=== PATIENT | male | born 1950 | race Asian ===

== ENCOUNTER → 2018-01-24 | Outpatient (CLI) | payer MEDICARE, MEDICAID | END | disposition home or self-care (01) | LOC: ROC 08:12 | PROVIDERS: ATTEND Radiology Radiation Oncology | DX: C20 Malignant neoplasm of rectum (principal); C78.02 Secondary malignant neoplasm of left lung; C64.1 Malignant neoplasm of right kidney, except renal pelvis | CPT/HCPCS: G0463 ==

== ENCOUNTER → 2018-05-27 | Outpatient (CLI) | payer MEDICARE, MEDICAID ==
[~2018-05-27] MED LIST: OMNIPAQUE 350 MG/ML, 100ML BOTTLE ONE
== END | disposition home or self-care (01) ==
LOC: CFH 10:24
PROVIDERS: ATTEND Internal Medicine Hematology & Oncology
DX: N28.1 Cyst of kidney, acquired (principal); N32.3 Diverticulum of bladder; K40.90 Unilateral inguinal hernia, without obstruction or gangrene, not specified as recurrent; R91.8 Other nonspecific abnormal finding of lung field; K80.20 Calculus of gallbladder without cholecystitis without obstruction; C78.02 Secondary malignant neoplasm of left lung; D75.1 Secondary polycythemia; C64.1 Malignant neoplasm of right kidney, except renal pelvis; C20 Malignant neoplasm of rectum; Z90.5 Acquired absence of kidney
CPT/HCPCS: 71260; 74177; Q9967

== ENCOUNTER → 2018-09-02 | Outpatient (CLI) | payer MEDICARE, MEDICAID | END | disposition home or self-care (01) | LOC: CFH 12:41 | PROVIDERS: ATTEND Internal Medicine Hematology & Oncology | DX: C78.02 Secondary malignant neoplasm of left lung (principal); C64.1 Malignant neoplasm of right kidney, except renal pelvis; C20 Malignant neoplasm of rectum; R91.8 Other nonspecific abnormal finding of lung field; E04.0 Nontoxic diffuse goiter | CPT/HCPCS: 71260; 74177; 82565; Q9967 ==

== ENCOUNTER → 2019-07-15 | Outpatient (CLI) | payer MEDICARE, MEDICAID | END | disposition home or self-care (01) | LOC: STAR 11:50 | PROVIDERS: ATTEND Nurse Practitioner Family | DX: Z01.818 Encounter for other preprocedural examination (principal); C64.1 Malignant neoplasm of right kidney, except renal pelvis; C78.02 Secondary malignant neoplasm of left lung; D75.1 Secondary polycythemia; C78.01 Secondary malignant neoplasm of right lung; C79.51 Secondary malignant neoplasm of bone; E04.2 Nontoxic multinodular goiter; C20 Malignant neoplasm of rectum | CPT/HCPCS: 93005 ==

== ENCOUNTER → 2019-10-27 | Outpatient (CLI) | payer MEDICARE, MEDICAID ==
[~2019-10-27] MED LIST changes: +BENA1TAB11 PO; +LEVO750T6 PO; +OMEP-110 PO; -OMNIPAQUE 350 MG/ML, 100ML BOTTLE ONE; +PAZO200T PO; +PROC10TA2 PO; +SUCR1ORA5 PO
[2019-10-27 13:43] LABS: CHLORIDE 107 mmol/L (98-107)
[2019-10-27 13:52] LABS: ALANINE AMINOTRANSFERASE 41 U/L (12-78); ALBUMIN 3.8 g/dL (3.4-5.0); ALKALINE PHOSPHATASE 78 U/L (45-117); ANION GAP 9 mmol/L (5-15); BILIRUBIN, DIRECT 0.4 mg/dL (0.1-0.2); BILIRUBIN,TOTAL 2.2 mg/dL (0.2-1.0); CALCIUM 9.2 mg/dL (8.5-10.1); CREATININE 1.09 mg/dL (0.7-1.3); TOTAL PROTEIN 7.5 g/dL (6.4-8.2)
== END | disposition home or self-care (01) ==
LOC: CFH 10:04
PROVIDERS: ATTEND Internal Medicine Hematology & Oncology
DX: C78.01 Secondary malignant neoplasm of right lung (principal); C79.51 Secondary malignant neoplasm of bone; C78.02 Secondary malignant neoplasm of left lung; C64.1 Malignant neoplasm of right kidney, except renal pelvis; D75.1 Secondary polycythemia; C20 Malignant neoplasm of rectum; E04.2 Nontoxic multinodular goiter; R53.83 Other fatigue; E61.2 Magnesium deficiency; Z79.899 Other long term (current) drug therapy
CPT/HCPCS: 36415; 80053; 82248

== ENCOUNTER 2020-01-01 15:42 | Outpatient (CLI) | payer MEDICARE, MEDICAID | END 2020-01-01 23:59 | disposition home or self-care (01) | LOC: CVU 15:42 | PROVIDERS: ATTEND Internal Medicine Hematology & Oncology | DX: C78.02 Secondary malignant neoplasm of left lung (principal); C64.1 Malignant neoplasm of right kidney, except renal pelvis; C20 Malignant neoplasm of rectum; I08.3 Combined rheumatic disorders of mitral, aortic and tricuspid valves | CPT/HCPCS: 93306 ==

== ENCOUNTER → 2020-01-05 | Outpatient (CLI) | payer MEDICARE, MEDICAID ==
[~2020-01-05] MED LIST changes: +OMNIPAQUE 350 MG/ML, 100ML BOTTLE ONE
== END | disposition home or self-care (01) ==
LOC: CFH 11:32
PROVIDERS: ATTEND Internal Medicine Hematology & Oncology
DX: C78.02 Secondary malignant neoplasm of left lung (principal); C64.1 Malignant neoplasm of right kidney, except renal pelvis; C20 Malignant neoplasm of rectum; J98.4 Other disorders of lung; R91.8 Other nonspecific abnormal finding of lung field; E04.2 Nontoxic multinodular goiter; N28.1 Cyst of kidney, acquired; N32.3 Diverticulum of bladder
CPT/HCPCS: 71260; 74177; Q9967